=== PATIENT | female | born 1945 | race Caucasian/White ===

== ENCOUNTER 2016-12-08 07:38 | Observation (INO) | payer MEDICARE, OTHER ==
[~2016-12-08] VITALS: Ht 172.7 cm; Wt 84.8 kg
--- NOTE | 2016-12-08 07:51 | NUR ---
PATIENT TO ROOM VIA EMS
--- NOTE | 2016-12-08 08:00 | NUR ---
PT ARRIVES VIA EMS STRETCHER, HYPERVENTILATING, APPEARS ANXIOUS, PT TEARFUL WITH SPOUSE AT BEDSIDE. PT ENCOURAGED TO TAKE SLOW DEEP BREATHS, SHE BEGAN TO RELAX A LITTLE, MONITOR SHOWS SR, NO ECTOPY. NO DIAPHORESIS NOTED.
[2016-12-08 08:29] LABS: HEMATOCRIT 37.8 % (37.0-47.0); IMMATURE GRANULOCYTES 0.2 % (0.0-1.0); MEAN CELL VOLUME 92.9 fL CALC (80.0-100.0); MEAN CORPUSCULAR HGB 31.9 pG CALC (26.0-32.0); MEAN CORPUSCULAR HGB CONC 34.4 g/L CALC (32.0-36.0); NEUT# 2.19 thou/uL (2.00-7.15); RED BLOOD COUNT 4.07 mill/uL (4.20-5.60); RED CELL DISTRI WIDTH 12.3 % (11.5-15.5)
[2016-12-08 08:41] LABS: PROTHROMBIN TIME 10.4 SECONDS (9.0-12.5)
[2016-12-08 08:44] LABS: ALBUMIN 4.1 g/dL (3.2-5.0); ALKALINE PHOSPHATASE 59 u/l (38-126); ANION GAP 15 (6-22 (CALC)); BILIRUBIN, TOTAL 0.5 mg/dL (0.0-1.4); BUN 26 mg/dL (8-23); BUN/CREATININE RATIO 29 (12-20 (CALC)); CALCIUM 9.8 mg/dL (8.4-10.2); CARBON DIOXIDE 22 mmol/l (22-30); CHLORIDE 109 mmol/l (95-108); CREATININE 0.9 mg/dL (0.5-1.0); GFR > 60 ML/MIN (>=60 (CALC)); GFR FOR AFR.AMER. > 60 ML/MIN (>=60 (CALC)); GLUCOSE 108 mg/dL (82-115); POTASSIUM 3.6 mmol/l (3.5-5.1); SGOT/AST 22 u/l (9-36); SGPT/ALT 30 u/l (11-66); SODIUM 143 mmol/l (137-146); TOTAL PROTEIN 7.5 g/dL (6.3-8.2)
[2016-12-08 08:56] LABS: MYOGLOBIN 30 ng/mL (0 - 62)
--- NOTE | 2016-12-08 09:00 | NUR ---
PT WITH HOB ELEVATED, NO ACUTE DISTRESS NOTED AT THIS TIME. VSS.
[2016-12-08 09:15] LABS: TSH, 3RD GENERATION 0.02 uIU/mL (0.47 - 4.68)
--- NOTE | 2016-12-08 10:22 | NUR ---
PT SITTING UP IN BED, TALKING WITH FAMILY MEMBERS. REPORTS CONTINUED PAIN TO LEFT CHEST WALL. MD AWARE.VSS
[2016-12-08] MEDS ORDERED: FLUOXETINE10 M2 PO (10:26)
[2016-12-08] MEDS ORDERED: MONTELUKAST SOD10 MG PO (10:26)
[2016-12-08] MEDS ORDERED: ADVAIR DISK1 INH (10:26)
[2016-12-08] MEDS ORDERED: VALACYCLOVIR H500 MG PO (10:26)
[2016-12-08] MEDS ORDERED: LEVOTHYROXIN125 MCG PO (10:27)
[2016-12-08] MEDS ORDERED: AMLODIPINE10 MG PO (10:27)
[2016-12-08] MEDS ORDERED: DIOVAN160 MG PO (10:27)
[2016-12-08] MEDS ORDERED: CALCIUM 600+D 61 TA1 PO (10:28)
[2016-12-08] MEDS ORDERED: FLUOCIN ACET0.011 EX (10:28)
[2016-12-08] MEDS ORDERED: OMEGA 31000 MG PO (10:29)
[2016-12-08] MEDS ORDERED: XANAX0.25 MG PO (10:29)
--- NOTE | 2016-12-08 11:06 | NUR ---
PT SUPINE IN BED, MONITOR SHOWS SINUS LILIANA 49-52. MD AWARE. PT SMILING AND COOPERATIVE WITH CARE.
--- NOTE | 2016-12-08 12:30 | NUR ---
PT APPEARS CALM AND COOPERATIVE WITH CARE. NO COMPLAINTS VOICED AT THIS TIME.
--- NOTE | 2016-12-08 14:10 | NUR ---
PLANS FOR ADMISSION DISCUSSED WITH PT. SHE VERBALIZED UNDERSTANDING WITH NO QUESTIONS VOICED.
--- NOTE | 2016-12-08 16:40 | NUR ---
ATEEMPTED TO CALL REPORT. INSTRUCTED THAT NURSE WOULD CALL BACK FOR REPORT
--- NOTE | 2016-12-08 17:05 | NUR ---
Admission Note Report Given to: SBAR PRINTED TO FLOOR Transported by: Wheelchair X Stretcher Transported with: X Nurse Transporter X Patent IV O2 X Pattern Lease Inspector
--- NOTE | 2016-12-08 17:10 | NUR ---
FROM ER ACCOMPANIED BY MIGUEL CHANDLER. AMBULATES TO BED WITH STEADY GAIT. RESPS EVEN AND UNLABORED ON ROOM AIR, TELE MONITOR IN PLACE. DENIES PAIN OR DISCOMFORT. ORIENTED TO ROOM AND CALL SYSTEM. BED IN LOWEST POSITION WITH WHEELS LOCKED. SAFETY PRECAUTIONS REINFORCED. PO FLUIDS OFFERED. CALL LIGHT WITHIN REACH. ENCOURAGED PT TO CALL FOR ANY NEEDS.
[2016-12-08 17:25] VITALS: BP 131/56
--- NOTE | 2016-12-08 18:00 | NUR ---
DR ANDUJAR IN TO SEE PT, NEW ORDERS RECEIVED.
--- NOTE | 2016-12-08 21:00 | NUR ---
PT RESTING IN SEMI FOWLERS POSITION WITH SPOUSE AT BEDSIDE;PT DENIES ANY PAIN OR DISCOMFORTS;ASSESSMENT COMPLETED;EMS IV SITE TO LEFT HAND FLUSHED AND PATENT;TELE MONITOR IN PLACE READING SR 70;SKIN INTACT;PT RE-EDUCATED ON ROOM AND CALL LIGHT SYSTEM;SAFETY PRECAUTIONS REINFORCED;PT APPEARS TO HAVE SLIGHT ANXIETY AND REQUESTS TO TAKE FREQUENT WALKS DOWN THE HALLS;PT EDUCATED ON PRN XANAX ORDER BUT REFUSES;PT DENIES ANY OTHER NEEDS AT THIS TIME;BED IN LOWEST POSITION WITH CALL LIGHT IN REACH;WILL CONTINUE TO MONITOR
[2016-12-09 00:13] VITALS: BP 146/73
--- NOTE | 2016-12-09 01:00 | NUR ---
PT APPEARS TO BE SLEEPING IN SEMI FOWLERS POSITION;NO S/S OF DISTRESS NOTED;RESPIRATIONS EVEN AND UNLABORED;TELE MONITOR IN PLACE;BED IN LOWEST POSITION WITH WHEELS LOCKED;CALL LIGHT WITHIN REACH;WILL CONTINUE TO MONITOR
[2016-12-09 04:50] VITALS: BP 130/74
--- NOTE | 2016-12-09 04:50 | NUR ---
PT AMBULATED ALL 3 HALLWAYS WITH A STEADY GAIT;PT DENIES ANY PAIN OR DISCOMFORTS;TELE MONITOR IN PLACE;PT TOLD TO CALL FOR ASSISTANCE IF NEEDED;BED IN LOWEST POSITION WITH CALL LIGHT IN REACH;WILL CONTINUE TO MONITOR
[2016-12-09 06:06] LABS: HEMATOCRIT 37.5 % (37.0-47.0); HEMOGLOBIN 12.5 g/dl (12.0-16.0); IMMATURE GRANULOCYTES 0.2 % (0.0-1.0); MEAN CELL VOLUME 95.4 fL CALC (80.0-100.0); MEAN CORPUSCULAR HGB 31.8 pG CALC (26.0-32.0); MEAN CORPUSCULAR HGB CONC 33.3 g/L CALC (32.0-36.0); NEUT# 2.29 thou/uL (2.00-7.15); RED BLOOD COUNT 3.93 mill/uL (4.20-5.60); RED CELL DISTRI WIDTH 12.5 % (11.5-15.5)
[2016-12-09 06:25] LABS: ANION GAP 14 (6-22 (CALC)); BUN 21 mg/dL (8-23); BUN/CREATININE RATIO 20 (12-20 (CALC)); CALCIUM 9.6 mg/dL (8.4-10.2); CALCULATED LDLCHOLESTEROL 130 mg/dL (62-129 (CALC)); CARBON DIOXIDE 25 mmol/l (22-30); CHLORIDE 109 mmol/l (95-108); GFR 55 ML/MIN (>=60 (CALC)); GFR FOR AFR.AMER. > 60 ML/MIN (>=60 (CALC)); GLUCOSE 84 mg/dL (82-115); HDL CHOLESTEROL 64 mg/dL (>=40); POTASSIUM 4.1 mmol/l (3.5-5.1); SODIUM 143 mmol/l (137-146); TOTAL CHOLESTEROL 213 mg/dl (0-199); TOTAL TRIGLYCERIDES 98 mg/dl (30-149); VLDL CHOLESTROL 20 mg/dl (0-48 (CALC))
--- NOTE | 2016-12-09 07:00 | NUR ---
REPORT RECIEVED FROM WHITNEY BAKER; PT UP TO BATHROOM AT THIS TIME; PT DENIES ANY ASSISTANCE NEEDED; WILL CONTINUE TO MONITOR
[2016-12-09 08:15] VITALS: BP 130/79
--- NOTE | 2016-12-09 11:47 | NUR ---
PT SITTING UP AT BEDSIDE; NO S/S OF DISTRESS NOTED; SPOUSE AT BEDSIDE; PT DENIES ANY CP OR SOB; CALL LIGHT WITHIN REACH; WILL CONTINUE TO MONITOR
--- NOTE | 2016-12-09 14:20 | NUR ---
Discharge instructions given. Patient verbalizes understanding of same. Discharged in stable condition via Ambulatory to Home with family. All belongings sent with pt.
== END 2016-12-09 14:23 | disposition home or self-care (01) ==
LOC: ENPENDDIS → ED 07:38 → ED-I 10:00 → ED 10:15 → MS2 10:16 → ED-I 10:16 → MS2 16:43
PROVIDERS: Emergency Medicine; ADMIT Internal Medicine; ATTEND Internal Medicine
DX: R07.9 Chest pain, unspecified (principal); I10 Essential (primary) hypertension; J45.909 Unspecified asthma, uncomplicated; E03.9 Hypothyroidism, unspecified; K57.90 Diverticulosis of intestine, part unspecified, without perforation or abscess without bleeding; D72.819 Decreased white blood cell count, unspecified; D69.6 Thrombocytopenia, unspecified; F41.9 Anxiety disorder, unspecified; F32.9 Major depressive disorder, single episode, unspecified; M25.512 Pain in left shoulder; M54.2 Cervicalgia

== ENCOUNTER 2017-05-06 17:21 | Emergency (ER) | payer MEDICARE, OTHER ==
[~2017-05-06] VITALS: Ht 172.7 cm; Wt 87.6 kg
[~2017-05-06 17:21] MED LIST: ADVAIR DISK1 INH; AMLODIPINE10 MG PO; CALCIUM 600+D 61 TA1 PO; DIOVAN160 MG PO; FLUOCIN ACET0.011 EX; FLUOXETINE10 M2 PO; LEVOTHYROXIN125 MCG PO; MONTELUKAST SOD10 MG PO; OMEGA 31000 MG PO; VALACYCLOVIR H500 MG PO; XANAX0.25 MG PO
[2017-05-06] MEDS ORDERED: PERCOCET 5/325M1 TAB PO (21:21)
[2017-05-06] MEDS ORDERED: ORPHENADRINE100 MG PO (21:21)
[2017-05-06 21:35] VITALS: BP 139/77
== END 2017-05-06 21:35 | disposition home or self-care (01) ==
LOC: ED 17:21
DX: M54.5 Low back pain (principal); I10 Essential (primary) hypertension; J44.9 Chronic obstructive pulmonary disease, unspecified; W01.0XXA Fall on same level from slipping, tripping and stumbling without subsequent striking against object, initial encounter; Y92.009 Unspecified place in unspecified non-institutional (private) residence as the place of occurrence of the external cause

== ENCOUNTER 2017-12-21 18:47 | Emergency (ER) | payer MEDICARE, OTHER ==
[~2017-12-21] VITALS: Ht 172.7 cm; Wt 88.4 kg
[~2017-12-21 18:47] MED LIST changes: +ORPHENADRINE100 MG PO; +PERCOCET 5/325M1 TAB PO
[2017-12-21] MEDS ORDERED: CALCIUM + D3 601 TAB PO (19:12)
[2017-12-21] MEDS ORDERED: XOPENEX HF45 MCG/ACT IN (19:13)
[2017-12-21] MEDS ORDERED: ADVAIR DISK2 IN (19:14)
[2017-12-21 19:18] VITALS: BP 172/86
[2017-12-21] MEDS ORDERED: ULTRAM50 M1 PO (20:24)
[2017-12-21] MEDS ORDERED: ASPERCREME LIDOCA41 TOP (20:26)
[2017-12-21] MEDS ORDERED: ONDANSETRON4 MG PO (20:26)
== END 2017-12-21 20:35 | disposition home or self-care (01) ==
LOC: ED 18:47
DX: M62.830 Muscle spasm of back (principal); J44.9 Chronic obstructive pulmonary disease, unspecified

== ENCOUNTER 2019-08-23 13:37 | Emergency (ER) | payer MEDICARE, OTHER ==
[~2019-08-23] VITALS: Ht 172.7 cm; Wt 100.0 kg
[~2019-08-23 13:37] MED LIST changes: +ADVAIR DISK2 IN; +ASPERCREME LIDOCA41 TOP; +CALCIUM + D3 601 TAB PO; +ONDANSETRON4 MG PO; +ULTRAM50 M1 PO; +XOPENEX HF45 MCG/ACT IN
[2019-08-23 14:48] VITALS: BP 134/75
== END 2019-08-23 14:54 | disposition home or self-care (01) ==
LOC: ED 13:37
DX: S92.511A Displaced fracture of proximal phalanx of right lesser toe(s), initial encounter for closed fracture (principal); J44.9 Chronic obstructive pulmonary disease, unspecified; W22.03XA Walked into furniture, initial encounter; Y92.009 Unspecified place in unspecified non-institutional (private) residence as the place of occurrence of the external cause

== ENCOUNTER 2021-09-15 00:34 | Emergency (ER) | payer MEDICARE, OTHER ==
[~2021-09-15] VITALS: Ht 172.7 cm; Wt 86.0 kg
[2021-09-15] MEDS ORDERED: MONTELUKAST SOD10 MG PO (00:58)
[2021-09-15] MEDS ORDERED: DICYCLOMINE HCL20 MG PO (00:59)
[2021-09-15] MEDS ORDERED: MAGNESIUM250 M1 PO (01:00)
[2021-09-15] MEDS ORDERED: BUSPAR15 M1 PO (01:01)
[2021-09-15] MEDS ORDERED: VALACYCLOVIR500 MG PO (01:03)
[2021-09-15] MEDS ORDERED: CRESTOR5 M1 (01:04)
[2021-09-15 01:32] LABS: HEMATOCRIT 40.2 % (37.0-47.0); IMMATURE GRANULOCYTES 0.6 % (0.0-5.0); MEAN CORPUSCULAR HGB CONC 32.3 g/dL CAL (32.0-36.0); NEUT# 2.67 thou/uL (2.00-7.15); RED BLOOD COUNT 3.94 mill/uL (4.20-5.60); RED CELL DISTRI WIDTH 12.8 % (11.5-15.5)
[2021-09-15 01:47] LABS: URINE BILIRUBIN - DIPSTICK NEGATIVE (NEGATIVE); URINE BLOOD DIPSTICK SMALL (NEGATIVE); URINE COLOR YELLOW; URINE GLUCOSE - DIPSTICK NEGATIVE (NEGATIVE); URINE KETONE NEGATIVE (NEGATIVE); URINE LEUK ESTERASE TRACE (NEGATIVE); URINE PH 6.5 (4.5-8.0); URINE PROTEIN - DIPSTICK NEGATIVE (NEG-TRACE); URINE UROBILINOGEN - DIPSTICK 0.2 E.U./dL (0.2)
[2021-09-15 01:49] LABS: ALBUMIN 4.1 g/dL (3.2-5.0); ALKALINE PHOSPHATASE 57 u/l (38-126); ANION GAP 9 (6-22 (CALC)); BILIRUBIN, TOTAL 0.5 mg/dL (0.0-1.4); BUN 24 mg/dL (8-23); BUN/CREATININE RATIO 25 (12-20 (CALC)); CHLORIDE 105 mmol/l (95-108); GFR 54 ML/MIN (>=60 (CALC)); GFR FOR AFR.AMER. > 60 ML/MIN (>=60 (CALC)); POTASSIUM 4.1 mmol/l (3.5-5.1); SGOT/AST 23 u/l (9-36); SODIUM 141 mmol/l (137-146); TOTAL PROTEIN 7.3 g/dL (6.3-8.2)
[2021-09-15 01:50] LABS: URINE NITRITE - DIPSTICK NEGATIVE (Negative)
[2021-09-15 01:52] LABS: CARBON DIOXIDE 31 mmol/l (22-30)
[2021-09-15 02:04] LABS: URINE SQUAMOUS EPITHELIAL CELL FEW EPI/hpf (0-FEW); URINE WBC 0-2 WBC/hpf (0-5)
[2021-09-15 02:58] VITALS: BP 130/70
== END 2021-09-15 02:58 | disposition home or self-care (01) ==
LOC: ED 00:34
PROVIDERS: Family Medicine
DX: I10 Essential (primary) hypertension (principal); M47.812 Spondylosis without myelopathy or radiculopathy, cervical region; J44.9 Chronic obstructive pulmonary disease, unspecified; K31.84 Gastroparesis

== ENCOUNTER 2022-02-20 10:13 | Observation (INO) | payer MEDICARE, OTHER ==
[2022-02-20] VITALS (20 sets, daily range): BP systolic 84–166; BP diastolic 56–137
[~2022-02-20] VITALS: Ht 172.7 cm; Wt 86.4 kg
[~2022-02-20 10:13] MED LIST changes: +BUSPAR15 M1 PO; +CRESTOR5 M1; +DICYCLOMINE HCL20 MG PO; +MAGNESIUM250 M1 PO; +VALACYCLOVIR500 MG PO
[2022-02-20 11:28] LABS: HEMOGLOBIN 12.2 g/dl (12.0-16.0); IMMATURE GRANULOCYTES 0.3 % (0.0-5.0); MEAN CELL VOLUME 100.5 fL CALC (80.0-100.0); MEAN CORPUSCULAR HGB 31.4 pG CALC (26.0-32.0); MEAN CORPUSCULAR HGB CONC 31.3 g/dL CAL (32.0-36.0); NEUT# 4.27 thou/uL (2.00-7.15); RED BLOOD COUNT 3.88 mill/uL (4.20-5.60); RED CELL DISTRI WIDTH 13.8 % (11.5-15.5)
[2022-02-20 11:30] LABS: ALKALINE PHOSPHATASE 63 u/l (38-126); ANION GAP 11 (6-22 (CALC)); BILIRUBIN, TOTAL 0.3 mg/dL (0.0-1.4); BUN 22 mg/dL (8-23); BUN/CREATININE RATIO 23 (12-20 (CALC)); CARBON DIOXIDE 33 mmol/l (22-30); CHLORIDE 99 mmol/l (95-108); GFR FOR AFR.AMER. > 60 ML/MIN (>=60 (CALC)); GFR OTHER RACES 54 ML/MIN (>=60 (CALC)); LIPASE 138 u/l (23-300); POTASSIUM 3.9 mmol/l (3.5-5.1); SGOT/AST 27 u/l (9-36); SODIUM 139 mmol/l (137-146); TOTAL PROTEIN 7.4 g/dL (6.3-8.2)
[2022-02-20 11:38] LABS: ACT PARTIAL THROMBO TIME 28.1 SECONDS (20.0-32.5); INTERNATIONAL NORMALIZED RATIO 0.9 RATIO (0.7-1.3); PROTHROMBIN TIME 9.5 SECONDS (9.0-12.5)
[2022-02-20] MEDS ORDERED: DECADRON4 MG PO (11:39)
[2022-02-20] MEDS ORDERED: ULTRAM50 MG PO (12:19)
[2022-02-20] MEDS ORDERED: FLEXERIL5 M1 PO (12:19)
[2022-02-20] MEDS ORDERED: DIOVAN320 MG PO (12:57)
[2022-02-20] MEDS ORDERED: LEVOCETIRIZINE D5 MG (13:03)
[2022-02-20] MEDS ORDERED: HYDROCHLOROT25 MG PO (13:04)
[2022-02-20] MEDS ORDERED: PRESERVISION PO (13:04)
[2022-02-20] MEDS ORDERED: VITAMIN E400 UNIT PO (13:05)
[2022-02-20] MEDS ORDERED: VITAMIN D35000 UNIT PO (13:05)
[2022-02-20] MEDS ORDERED: ZINC50 M1 PO (13:05)
[2022-02-20] MEDS ORDERED: METAMUCIL0.52 G2 (13:06)
[2022-02-20] MEDS ORDERED: VITAMIN B COMPL1 TAB (13:06)
[2022-02-20] MEDS ORDERED: VITAMIN C1000 MG PO (13:06)
[2022-02-20] MEDS ORDERED: PREDNISONE10 MG PO (13:07)
[2022-02-20] MEDS ORDERED: LEVOTHYROXIN100 MCG PO (13:07)
[2022-02-20 13:32] LABS: HEMATOCRIT 40.6 % (37.0-47.0); HEMOGLOBIN 12.8 g/dl (12.0-16.0); IMMATURE GRANULOCYTES 0.2 % (0.0-5.0); MEAN CELL VOLUME 101.5 fL CALC (80.0-100.0); MEAN CORPUSCULAR HGB CONC 31.5 g/dL CAL (32.0-36.0); NEUT# 7.07 thou/uL (2.00-7.15); RED CELL DISTRI WIDTH 13.9 % (11.5-15.5)
[2022-02-20 17:24] LABS: URINE BILIRUBIN - DIPSTICK NEGATIVE (NEGATIVE); URINE BLOOD DIPSTICK TRACE-INTACT (NEGATIVE); URINE CLARITY CLEAR; URINE COLOR YELLOW; URINE GLUCOSE - DIPSTICK NEGATIVE (NEGATIVE); URINE KETONE NEGATIVE (NEGATIVE); URINE LEUK ESTERASE NEGATIVE (Negative); URINE NITRITE - DIPSTICK NEGATIVE (Negative); URINE PROTEIN - DIPSTICK NEGATIVE (NEG-TRACE); URINE UROBILINOGEN - DIPSTICK 0.2 E.U./dL (0.2)
[2022-02-21 05:02] VITALS: BP 117/81
[2022-02-21 06:02] LABS: HEMATOCRIT 35.5 % (37.0-47.0); HEMOGLOBIN 11.4 g/dl (12.0-16.0); MEAN CELL VOLUME 98.9 fL CALC (80.0-100.0); MEAN CORPUSCULAR HGB 31.8 pG CALC (26.0-32.0); MEAN CORPUSCULAR HGB CONC 32.1 g/dL CAL (32.0-36.0); RED BLOOD COUNT 3.59 mill/uL (4.20-5.60); RED CELL DISTRI WIDTH 13.8 % (11.5-15.5)
[2022-02-21 06:19] LABS: ANION GAP 11 (6-22 (CALC)); BUN 21 mg/dL (8-23); BUN/CREATININE RATIO 23 (12-20 (CALC)); CARBON DIOXIDE 27 mmol/l (22-30); CHLORIDE 104 mmol/l (95-108); CREATININE 0.9 mg/dL (0.5-1.0); GFR FOR AFR.AMER. > 60 ML/MIN (>=60 (CALC)); GFR OTHER RACES > 60 ML/MIN (>=60 (CALC)); MAGNESIUM 2.3 mg/dL (1.6-2.3); POTASSIUM 4.2 mmol/l (3.5-5.1); SODIUM 138 mmol/l (137-146)
[2022-02-21 06:49] VITALS: BP 123/70
[2022-02-21 10:19] VITALS: BP 135/71
== END 2022-02-21 14:15 | disposition home or self-care (01) ==
LOC: ED 10:13 → ED-I 13:50 → ED 14:07 → MS2 14:08
PROVIDERS: ADMIT Hospitalist; ATTEND Hospitalist
DX: I95.9 Hypotension, unspecified (principal); R00.1 Bradycardia, unspecified; R10.9 Unspecified abdominal pain; I10 Essential (primary) hypertension; J44.9 Chronic obstructive pulmonary disease, unspecified; E03.9 Hypothyroidism, unspecified; F32.A Depression, unspecified; M47.812 Spondylosis without myelopathy or radiculopathy, cervical region; Z20.822 Contact with and (suspected) exposure to COVID-19
CPT/HCPCS: Q9967

== ENCOUNTER 2024-03-02 09:50 | Day surgery (SDC) | payer MEDICARE, OTHER ==
[~2024-03-02] VITALS: Ht 172.7 cm; Wt 65.8 kg
[~2024-03-02 09:50] MED LIST changes: +AMBIEN5 MG PO; +AMLODIPINE BESY10 MG PO; -AMLODIPINE10 MG PO; +DECADRON4 MG PO; +DIOVAN320 MG PO; +FLAX SEED1000 MG PO; +FLEXERIL5 M1 PO; +FULL SPECTRUM S1 CAP PO; +HYDROCHLOROT25 MG PO; +HYDROXYCHLOR200 MG PO; +LEVOCETIRIZINE D5 MG; +LEVOTHYROXIN100 MCG PO; +METAMUCIL0.52 G2; +PREDNISONE10 MG PO; +PRESERVISION PO; +ULTRAM50 MG PO; +VITAMIN B COMPL1 TAB; +VITAMIN C1000 MG PO; +VITAMIN D35000 UNIT PO; +VITAMIN E400 UNIT PO; +ZINC50 M1 PO
[2024-03-02] MEDS ORDERED: FAMOTIDINE 10MG/ML 2ML SDV IV ONE (10:01)
[2024-03-02] MEDS ORDERED: LACTATED RINGER'S 1,000 ML IV ONE (10:01)
[2024-03-02 12:41] VITALS: BP 165/92
[2024-03-02] MEDS ORDERED: PROPOFOL 200 MG/20 ML VIAL IV ONE (16:27)
[2024-03-02] MEDS ORDERED: GLYCOPYRROLATE 0.2 MG/ML IV ONE (16:27)
[2024-03-02] MEDS ORDERED: LIDOCAINE HCL 2% 2ML SDV IV ONE (16:27)
== END 2024-03-02 13:17 | disposition home or self-care (01) ==
LOC: ORM 09:50
PROVIDERS: ATTEND Internal Medicine Gastroenterology
PROC: 0DBK8ZX Excision of Ascending Colon, Via Natural or Artificial Opening Endoscopic, Diagnostic (ICD-10-PCS; principal; 2024-03-02)
PROC: 0DBP8ZX Excision of Rectum, Via Natural or Artificial Opening Endoscopic, Diagnostic (ICD-10-PCS; 2024-03-02)
PROC: 0DBN8ZZ Excision of Sigmoid Colon, Via Natural or Artificial Opening Endoscopic (ICD-10-PCS; 2024-03-02)
PROC: 3E0H8KZ Introduction of Other Diagnostic Substance into Lower GI, Via Natural or Artificial Opening Endoscopic (ICD-10-PCS; 2024-03-02)
DX: C18.2 Malignant neoplasm of ascending colon (principal); D12.3 Benign neoplasm of transverse colon; K57.31 Diverticulosis of large intestine without perforation or abscess with bleeding; K62.1 Rectal polyp; K63.5 Polyp of colon; K62.89 Other specified diseases of anus and rectum; K64.8 Other hemorrhoids